=== PATIENT | female | born 1985 | race Asian ===

== ENCOUNTER 2018-01-25 02:34 | Inpatient (IN) | payer BC ==
[2018-01-25] VITALS (31 sets, daily range): BP systolic 90–119; BP diastolic 50–83; PULSE 57–96; TEMP 97.5–98.8
[~2018-01-25] VITALS: Ht 162.6 cm; Wt 65.9 kg
[2018-01-25] MEDS ORDERED: PRENATAL PO (02:56)
[2018-01-25] MEDS ORDERED: NATURAL IRON65 MG PO (02:57)
[2018-01-25 03:50] LABS: BASO % 0.4 % (0.0-2.0); EOS # 0.1 (0.0-0.7); EOS % 0.7 % (0-4.0); GRAN # 6.2 (1.4-6.5); GRAN % 67.9 % (42.2-75.2); HEMOGLOBIN 11.7 g/dl (12.5-16.0); LYMPH # 1.9 (1.2-3.4); LYMPH % 20.4 % (20.0-51.0); MEAN CELL VOLUME 70 fl (80.0-100.0); MEAN CORPUSCULAR HEMOGLOBIN 23 pg (27.0-31.0); MEAN CORPUSCULAR HGB CONC 33 g/dl (33.0-37.0); MEAN PLATELET VOLUME 10.9 fl (7.4-10.4); MONO # 0.9 (0.1-0.6); MONO % 10.2 % (1.7-9.3); PLATELET COUNT 243 K/mm3 (130-400); RED BLOOD COUNT 5.11 M/mm3 (4.10-5.30)
[2018-01-25 04:02] LABS: HEMATOCRIT 35.8 % (37.0-47.0)
[2018-01-26] MEDS ORDERED: IBU800 M1 PO (08:49)
[2018-01-26] MEDS ORDERED: PERCOCET 325 MG1 TA2 PO (08:49)
[2018-01-26 09:00] VITALS: BP 101/59; PULSE 81; TEMP 97.7
[2018-01-26 15:45] VITALS: BP 110/65; PULSE 76; TEMP 97.9
[2018-01-26 21:30] VITALS: BP 113/76; PULSE 87; TEMP 97.8
[2018-01-27 07:21] VITALS: BP 116/58; PULSE 82; TEMP 98.7
== END 2018-01-27 12:05 | disposition home or self-care (01) | DRG 775 ==
LOC: LDRO 02:34 → LDR 03:31 → OB 03:31
PROVIDERS: Obstetrics & Gynecology
PROC: 10D07Z6 Extraction of Products of Conception, Vacuum, Via Natural or Artificial Opening (ICD-10-PCS; principal; 2018-01-25)
PROC: 0KQM0ZZ Repair Perineum Muscle, Open Approach (ICD-10-PCS; 2018-01-25)
DX: O76 Abnormality in fetal heart rate and rhythm complicating labor and delivery (principal); Z3A.38 38 weeks gestation of pregnancy; Z37.0 Single live birth; O70.1 Second degree perineal laceration during delivery
CPT/HCPCS: J1200; J2590; J2795; J7120